=== PATIENT | female | born 1985 | race Caucasian/White ===

== ENCOUNTER 2017-09-25 19:28 | Emergency (ER) | payer BC ==
[2017-09-25 20:38] VITALS: BP 114/73
--- NOTE | 2017-09-25 20:51 | UC ---
Complaint Female HPI - HPI Summary HPI Summary: Pt presents with 3 days dysuria and urgency. No hematuria. no n/v/d No back pain. no fever,chills rash. Pt with Implenon. No vaginal discharge, itch, odor Pt's medications reviewed this visit - History Of Current Complaint Chief Complaint: UCGU Stated Complaint: URINARY Time Seen by Provider: 09/25/17 20:46 Hx Obtained From: Patient Hx Last Menstrual Period: 09/07/17 ?: No Onset/Duration: Gradual Onset Pain Intensity: 0 - Allergies/Home Medications Allergies/Adverse Reactions: Allergies Allergy/AdvReac Type Severity Reaction Status Date / Time No Known Allergies Allergy Verified 09/25/17 20:38 Home Medications: Home Medications Etonogestrel [Nexplanon] 68 mg SQ MONTHLY 09/25/17 [History Confirmed 09/25/17] PMH/Surg Hx/FS Hx/Imm Hx Previously Healthy: Yes - Surgical History Surgical History: None - Social History Occupation: Employed Full-time - pre kindergarten teacher Lives: With Family Alcohol Use: Occasionally Substance Use Type: None Smoking Status (MU): Never Smoked Tobacco Review of Systems Constitutional: Negative Genitourinary: Dysuria, Frequency, Urgency All Other Systems Reviewed And Are Negative: Yes Physical Exam Triage Information Reviewed: Yes Appearance: Well-Appearing, No Pain Distress, Well-Nourished Vital Signs: Initial Vital Signs Temp 98.6 F 09/25/17 20:34 Pulse 68 09/25/17 20:34 Resp 16 09/25/17 20:34 BP 114/73 09/25/17 20:34 Pulse Ox 100 09/25/17 20:34 Vital Signs Reviewed: Yes Eye Exam: Normal Eyes: Positive: Conjunctiva Clear ENT: Positive: Normal ENT inspection, Pharynx normal Dental Exam: Normal Neck exam: Normal Neck: Positive: Supple, Nontender, No Lymphadenopathy Respiratory Exam: Normal Respiratory: Positive: Chest non-tender, Lungs clear, Normal breath sounds, No respiratory distress, No accessory muscle use Cardiovascular Exam: Normal Cardiovascular: Positive: RRR, No Murmur, Pulses Normal Abdominal Exam: Normal Abdomen Description: Positive: Nontender, No Organomegaly, Soft. Negative: CVA Tenderness (R), CVA Tenderness (L) Bowel Sounds: Positive: Present Musculoskeletal Exam: Normal Musculoskeletal: Positive: Strength Intact Neurological Exam: Normal Neurological: Positive: Alert Psychological Exam: Normal Skin Exam: Normal Complaint Female Dx - Course Course Of Treatment: Pt with dysuria, frequency, urgency. + UTI on urinalysis. pt declined pyrdium. Macrobid (dispensed one for am - pt leaves for work at 7 ). hydrate. motrin/apap. return pecuations. culture - Differential Dx/Diagnosis Provider Diagnoses: UTI Discharge - Sign-Out/Discharge Documenting (check all that apply): Discharge - Discharge Plan Condition: Stable Disposition: HOME Prescriptions: Nitrofurantoin Macrocrystals* [Macrodantin*] 100 mg PO BID #12 cap Patient Education Materials: Urinary Tract Infection in Women (ED) Referrals: Ally Forbes MD [Primary Care Provider] - Additional Instructions: - stay well hydrated - drink plenty of non-alcoholic, non caffinated beverages - your urine will be further tested - if you require any changes to your treatment, we will contact you - this usually take 2 days - Contact your primary doctor to arrange a follow-up appointment next week. Contact your doctor or return with questions or concerns - Take your antibiotics exactly as prescribed until gone - Stay well hydrated. Drink plenty of non-alcoholic, non-caffinated beverages - Okay to alternate ibuprofen (Advil, Motrin) and Tylenol every 3 hours for pain. Take with food - Call your doctor or return with questions or concerns - Billing Disposition and Condition Condition: STABLE Disposition: HOME
[2017-09-25] MEDS ORDERED: Nitrofurantoin Macrocrystals* 50 MG CAP PO ONE ×2 (20:56)
== END 2017-09-25 21:11 | disposition home or self-care (01) ==
LOC: UCCORT 19:28
DX: N39.0 Urinary tract infection, site not specified (principal)
CPT/HCPCS: 81003; 87086; 99212; A9270-GY; G0463

== ENCOUNTER 2018-10-18 17:39 | Emergency (ER) | payer BC ==
[2018-10-18 18:11] VITALS: BP 115/80
--- NOTE | 2018-10-18 18:27 | UC ---
Ear Complaint HPI - HPI Summary HPI Summary: acute onset of ear pain this afternoon, without sore throat, fever, vertigo or headache. - History of Current Complaint Chief Complaint: UCEar Stated Complaint: L EAR COMPLAINT Time Seen by Provider: 10/18/18 18:19 Hx Obtained From: Patient Hx Last Menstrual Period: 09/30/18 Onset/Duration: Sudden Onset, Lasting Hours - 4 Severity Initially: Moderate Severity Currently: Mild Pain Intensity: 4 Aggravating Factors: Nothing Alleviating Factors: OTC Meds Associated Signs/Symptoms: Positive: Hearing Loss - blunted hearing this afternoon. Negative: Discharge - Allergies/Home Medications Allergies/Adverse Reactions: Allergies Allergy/AdvReac Type Severity Reaction Status Date / Time No Known Allergies Allergy Verified 10/18/18 18:11 Home Medications: Home Medications Oral Contraceptive DAILY 10/18/18 [History] PMH/Surg Hx/FS Hx/Imm Hx Endocrine History: Hypothyroidism - Surgical History Surgical History: None - Family History Known Family History: Positive: Non-Contributory - Social History Occupation: Employed Full-time - teacher Lives: With Family Alcohol Use: Occasionally Substance Use Type: None Smoking Status (MU): Never Smoked Tobacco Review of Systems All Other Systems Reviewed And Are Negative: Yes Constitutional: Positive: Fatigue - feels a little run down ENT: Positive: Ear Ache, Nasal Discharge Genitourinary: Positive: Negative - takes oral contraceptives, week 3 of cycle Physical Exam Triage Information Reviewed: Yes Appearance: Well-Appearing, No Pain Distress Vital Signs: Initial Vital Signs Temp 98.3 F 10/18/18 18:08 Pulse 69 10/18/18 18:08 Resp 16 10/18/18 18:08 BP 115/80 10/18/18 18:08 Pulse Ox 100 10/18/18 18:08 Eyes: Positive: Conjunctiva Clear ENT: Positive: Pharynx normal, TM bulging - on left, TM red - on left. Negative : Tonsillar swelling, Tonsillar exudate Dental Exam: Normal Neck: Positive: Supple, Nontender, No Lymphadenopathy Respiratory: Positive: Lungs clear, Normal breath sounds Cardiovascular: Positive: RRR, No Murmur Ear Complaint Course/Dx - Course Course Of Treatment: amoxicillin for acute otitis media - Differential Dx/Diagnosis Differential Diagnosis/HQI/PQRI: Cerumen Impaction, Otitis Externa, Otitis Media Provider Diagnosis: Acute otitis media with effusion of left ear Discharge - Sign-Out/Discharge Documenting (check all that apply): Patient Departure All imaging exams completed and their final reports reviewed: No Studies - Discharge Plan Condition: Stable Disposition: HOME Patient Education Materials: Ear Infection (ED) Forms: *Work Release Referrals: Ally Forbes MD [Primary Care Provider] - Additional Instructions: You can use ibuprofen 600mg 2 or 3 times per day for releif of pain. Amoxicillin has been prescribed for treatment. - Billing Disposition and Condition Condition: STABLE Disposition: Home
== END 2018-10-18 18:39 | disposition home or self-care (01) ==
LOC: UCCORT 17:39
DX: H65.192 Other acute nonsuppurative otitis media, left ear (principal)
CPT/HCPCS: 99212; G0463

== ENCOUNTER 2019-01-07 18:19 | Emergency (ER) | payer BC ==
[2019-01-07 18:55] VITALS: BP 114/77
--- NOTE | 2019-01-07 19:08 | UC ---
UC General HPI - HPI Summary HPI Summary: pt is c/o urinary frequency, urgency and pressure at the end of her stream. she has a hx of uti's and this feels the same. - History of Current Complaint Chief Complaint: UCGU Stated Complaint: URINARY COMPLAINT Time Seen by Provider: 01/07/19 18:42 Hx Obtained From: Patient Hx Last Menstrual Period: 12/24/18 Onset/Duration: Gradual Onset Pain Intensity: 0 Associated Signs & Symptoms: Positive: Other - no vaginal discharge or concern for pelvic infection.. Negative: Abdominal Pain, Fever - Allergy/Home Medications Allergies/Adverse Reactions: Allergies Allergy/AdvReac Type Severity Reaction Status Date / Time No Known Allergies Allergy Verified 01/07/19 18:55 PMH/Surg Hx/FS Hx/Imm Hx Endocrine History: Thyroid Disease - Surgical History Surgical History: None - Family History Known Family History: Positive: Non-Contributory - Social History Alcohol Use: Occasionally Substance Use Type: None Smoking Status (MU): Never Smoked Tobacco Review of Systems All Other Systems Reviewed And Are Negative: No Constitutional: Negative: Fever, Chills Gastrointestinal: Negative: Abdominal Pain, Vomiting, Diarrhea, Nausea Genitourinary: Positive: Frequency, Urgency. Negative: Hematuria Physical Exam Triage Information Reviewed: Yes Appearance: Well-Appearing Vital Signs: Initial Vital Signs Temp 98.6 F 01/07/19 18:49 Pulse 70 01/07/19 18:49 Resp 16 01/07/19 18:49 BP 114/77 01/07/19 18:49 Pulse Ox 98 01/07/19 18:49 Vital Signs Reviewed: Yes Eyes: Positive: Conjunctiva Clear Neck: Positive: Supple Respiratory: Positive: Lungs clear Cardiovascular: Positive: RRR Abdomen Description: Positive: Nontender, No Organomegaly, Soft. Negative: CVA Tenderness (R), CVA Tenderness (L) Bowel Sounds: Positive: Present Musculoskeletal: Positive: ROM Intact Neurological: Positive: Alert Psychological: Positive: Age Appropriate Behavior Skin Exam: Normal Diagnostics - Laboratory Lab Results: u/a = blood and leukocytes with culture pending. Course/Dx - Diagnoses Provider Diagnosis: UTI (urinary tract infection) Discharge - Sign-Out/Discharge Documenting (check all that apply): Patient Departure All imaging exams completed and their final reports reviewed: No Studies - Discharge Plan Condition: Stable Disposition: HOME Prescriptions: Nitrofurantoin Monohyd/M-Cryst [Macrobid 100 mg Capsule] 100 mg PO BID 5 Days # 10 cap Patient Education Materials: Urinary Tract Infection in Women (ED) Referrals: Ally Forbes MD [Primary Care Provider] - Additional Instructions: FOLLOW UP IF NOT BETTER IN 5 DAYS OR SOONER IF WORSE. - Billing Disposition and Condition Condition: STABLE Disposition: Home
== END 2019-01-07 19:32 | disposition home or self-care (01) ==
LOC: UCCORT 18:19
DX: N39.0 Urinary tract infection, site not specified (principal)
CPT/HCPCS: 81003; 87077; 87086; 99212; G0463

== ENCOUNTER 2019-08-20 15:50 | Emergency (ER) | payer BC ==
[2019-08-20 17:00] VITALS: BP 109/76
--- NOTE | 2019-08-20 17:00 | UC ---
Throat Pain/Nasal Luciano HPI - HPI Summary HPI Summary: 33-year-old female who had cold symptoms approximately 2 weeks ago and the last 3 days she has had sinus pressure, postnasal drainage. - History of Current Complaint Chief Complaint: UCRespiratory Stated Complaint: CONGESTION Time Seen by Provider: 08/20/19 16:54 Hx Obtained From: Patient Hx Last Menstrual Period: 08/07/19 ?: No Onset/Duration: Gradual Onset, Lasting Weeks Severity: Mild Pain Intensity: 4 Cough: None Associated Signs & Symptoms: Positive: Sinus Discomfort, Nasal Discharge - Allergies/Home Medications Allergies/Adverse Reactions: Allergies Allergy/AdvReac Type Severity Reaction Status Date / Time nickel Allergy Severe Rash And Verified 08/20/19 16:53 Itching cobalt Allergy Unknown Rash And Verified 08/20/19 16:53 Itching Home Medications: Home Medications Levothyroxine Sodium [Levothyroxine] 137 mcg PO DAILY 05/19/14 [History Confirmed 08/20/19] Amoxicillin PO (*) [Amoxicillin 875 MG (*)] 875 mg PO BID 10 Days #20 tab [Rx] D-Methorphan/PE/Acetaminophen [Vicks Dayquil Cold & Flu] 2 cap PO PRN 08/20/19 [ History] PMH/Surg Hx/FS Hx/Imm Hx Previously Healthy: Yes Endocrine History: Thyroid Disease - Surgical History Surgical History: None - Family History Known Family History: Positive: Non-Contributory - Social History Occupation: Employed Full-time Lives: With Family Alcohol Use: Occasionally Substance Use Type: None Smoking Status (MU): Never Smoked Tobacco Review of Systems All Other Systems Reviewed And Are Negative: Yes ENT: Positive: Nasal Discharge, Sinus Congestion, Sinus Pain/Tenderness Is Patient Immunocompromised?: No Physical Exam Triage Information Reviewed: Yes Appearance: Well-Appearing, No Pain Distress, Well-Nourished Vital Signs: Initial Vital Signs Temp 97.6 F 08/20/19 16:55 Pulse 82 08/20/19 16:55 Resp 16 08/20/19 16:55 BP 109/76 08/20/19 16:55 Pulse Ox 99 08/20/19 16:55 Vital Signs Reviewed: Yes Eyes: Positive: Conjunctiva Clear ENT: Positive: Pharynx normal - Yellow postnasal drainage, Nasal congestion - Yellow nasal coryza right side more than the left, Nasal drainage, TMs normal, Sinus tenderness - Tender over the maxillary and frontal sinuses bilaterally., Uvula midline. Negative: Trismus, Muffled voice Neck: Positive: Supple, Nontender, No Lymphadenopathy Respiratory: Positive: Lungs clear, Normal breath sounds, No respiratory distress, No accessory muscle use Cardiovascular: Positive: RRR, No Murmur, Pulses Normal, Brisk Capillary Refill Musculoskeletal Exam: Normal Neurological Exam: Normal Psychological Exam: Normal Skin Exam: Normal Throat Pain/Nasal Course/Dx - Course Course Of Treatment: Patient is comfortable here and in no distress. - Differential Dx/Diagnosis Provider Diagnosis: Sinusitis Discharge ED - Sign-Out/Discharge Documenting (check all that apply): Patient Departure All imaging exams completed and their final reports reviewed: No Studies - Discharge Plan Condition: Good Disposition: HOME Prescriptions: Amoxicillin PO (*) [Amoxicillin 875 MG (*)] 875 mg PO BID 10 Days #20 tab Patient Education Materials: Sinusitis (ED) Referrals: Ally Forbes MD [Primary Care Provider] - Additional Instructions: Increase fluids, [id number] cold medicine at directed. Follow up with your primary care provider in 5-7 days if no improvement. - Billing Disposition and Condition Condition: GOOD Disposition: Home
== END 2019-08-20 17:11 | disposition home or self-care (01) ==
LOC: UCCORT 15:50
DX: J32.9 Chronic sinusitis, unspecified (principal); E07.9 Disorder of thyroid, unspecified; Z91.09 Other allergy status, other than to drugs and biological substances; Z79.890 Hormone replacement therapy
CPT/HCPCS: 99212; G0463

== ENCOUNTER 2019-10-19 17:18 | Emergency (ER) | payer BC ==
[2019-10-19 17:50] VITALS: BP 127/92
--- NOTE | 2019-10-19 18:07 | UC ---
Complaint Female HPI - HPI Summary HPI Summary: 34 yo woman c/o urinary frequency, urgency and dysuria since this morning. - History Of Current Complaint Chief Complaint: UCGU Stated Complaint: URINARY Time Seen by Provider: 10/19/19 17:50 Hx Obtained From: Patient Hx Last Menstrual Period: 08/07/19 ?: No Onset/Duration: Sudden Onset, Lasting Hours - 12 Timing: Constant Severity Initially: Mild Severity Currently: Mild Pain Intensity: 0 Character: Burning Aggravating Factor(s): Urination Associated Signs And Symptoms: Positive: Negative Related Hx: Similar Episode/Dx as: - UTI - Allergies/Home Medications Allergies/Adverse Reactions: Allergies Allergy/AdvReac Type Severity Reaction Status Date / Time nickel Allergy Severe Rash And Verified 10/19/19 17:50 Itching cobalt Allergy Unknown Rash And Verified 10/19/19 17:50 Itching Home Medications: Home Medications Levothyroxine Sodium [Levothyroxine] 137 mcg PO DAILY 05/19/14 [History Confirmed 10/19/19] Nitrofurantoin Monohyd/M-Cryst [Macrobid 100 mg Capsule] 100 mg PO BID #10 cap 10/19/19 [Rx] Phenazopyridine 200 mg (NF) [Pyridium 200 MG tab *] 200 mg PO TID PRN #6 tab [Rx] PMH/Surg Hx/FS Hx/Imm Hx Endocrine History: Hypothyroidism - Surgical History Surgical History: None - Family History Known Family History: Positive: Cardiac Disease, Hypertension, Diabetes, Non- Contributory - Social History Occupation: Employed Full-time Lives: With Family Alcohol Use: Occasionally Substance Use Type: None Smoking Status (MU): Never Smoked Tobacco Review of Systems All Other Systems Reviewed And Are Negative: Yes Genitourinary: Positive: Dysuria, Frequency, Urgency Physical Exam Triage Information Reviewed: Yes Appearance: Well-Appearing, No Pain Distress, Obese Vital Signs: Initial Vital Signs Temp 98.5 F 10/19/19 17:46 Pulse 90 10/19/19 17:46 Resp 18 10/19/19 17:46 BP 127/92 10/19/19 17:46 Pulse Ox 98 10/19/19 17:46 Vital Signs Reviewed: Yes Eyes: Positive: Conjunctiva Clear Neck exam: Normal Respiratory Exam: Normal Cardiovascular Exam: Normal Abdomen Description: Positive: Nontender, No Organomegaly. Negative: CVA Tenderness (R), CVA Tenderness (L) Bowel Sounds: Positive: Present Musculoskeletal Exam: Normal Neurological Exam: Normal Psychological Exam: Normal Skin Exam: Normal Complaint Female Dx - Differential Dx/Diagnosis Differential Diagnosis/HQI/PQRI: Appendicitis, Cervicitis, Ovarian Cyst, Urinary Tract Infection Provider Diagnosis: Acute cystitis Discharge ED - Sign-Out/Discharge Documenting (check all that apply): Patient Departure All imaging exams completed and their final reports reviewed: No Studies - Discharge Plan Condition: Stable Disposition: HOME Prescriptions: Nitrofurantoin Monohyd/M-Cryst [Macrobid 100 mg Capsule] 100 mg PO BID #10 cap Phenazopyridine 200 mg (NF) [Pyridium 200 MG tab *] 200 mg PO TID PRN #6 tab PRN Reason: UTI symptoms Patient Education Materials: Urinary Tract Infection in Women (ED) Referrals: Ally Forbes MD [Primary Care Provider] - - Billing Disposition and Condition Condition: STABLE Disposition: Home
[2019-10-19] MEDS ORDERED: Nitrofurantoin Macrocrystals* 50 MG CAP PO ONE (18:10)
[2019-10-19] MEDS ORDERED: Phenazopyridine TAB* 100 MG PO ONE (18:10)
== END 2019-10-19 18:18 | disposition home or self-care (01) ==
LOC: UCCORT 17:18
DX: N30.00 Acute cystitis without hematuria (principal); E03.9 Hypothyroidism, unspecified; Z79.890 Hormone replacement therapy; Z91.09 Other allergy status, other than to drugs and biological substances
CPT/HCPCS: 81003; 87086; 99212; A9270-GY; G0463